=== PATIENT | female | born 1935 | race Caucasian/White ===

== ENCOUNTER 2018-03-15 09:16 | Day surgery (SDC) | payer MEDICARE, OTHER ==
[2018-03-15] VITALS (12 sets, daily range): BP systolic 121–172; BP diastolic 68–100
[~2018-03-15] VITALS: Ht 172.7 cm; Wt 76.8 kg
[2018-03-15] MEDS ORDERED: normal saline 1000ml 1,000 ML IV SCH (09:45)
[2018-03-15] MEDS ORDERED: MIDAZolam 5mg/ml 2ml vial IV ONE (09:50)
[2018-03-15] MEDS ORDERED: fentaNYL/PF 50MCG/1 ML 2ML syringe IV ONE (09:50)
[2018-03-15] MEDS ORDERED: CARV-49 PO (09:55)
[2018-03-15] MEDS ORDERED: GABA-532 PO (09:55)
[2018-03-15] MEDS ORDERED: XAL0.005OS OP (09:55)
[2018-03-15] MEDS ORDERED: TOLT4CAP PO (09:55)
[2018-03-15] MEDS ORDERED: APIX5TAB3 PO (09:56)
[2018-03-15] MEDS ORDERED: LEVO100T PO (09:56)
[2018-03-15] MEDS ORDERED: LISI40TA4 PO (09:56)
== END 2018-03-15 13:00 | disposition home or self-care (01) ==
LOC: SSTAY O 09:16
PROVIDERS: ATTEND Internal Medicine Interventional Cardiology
DX: I48.91 Unspecified atrial fibrillation (principal); I10 Essential (primary) hypertension; E03.9 Hypothyroidism, unspecified; Z96.641 Presence of right artificial hip joint; Z72.89 Other problems related to lifestyle; Z79.891 Long term (current) use of opiate analgesic; Z79.01 Long term (current) use of anticoagulants; Z79.899 Other long term (current) drug therapy; Z98.890 Other specified postprocedural states
CPT/HCPCS: 92960; 93005; J2250; J3010; J7030; A4620